=== PATIENT | male | born 1960 | race Caucasian/White ===

== ENCOUNTER 2021-10-14 03:40 | Emergency (ER) | payer MEDICAID ==
[~2021-10-14] VITALS: Ht 185.4 cm; Wt 95.3 kg
[2021-10-14 04:41] VITALS: BP_SYST 119
--- NOTE | 2021-10-14 04:41 | NUR ---
Patient to [facility] for evaluation and treatment
[2021-10-14] MEDS ORDERED: KETOROLAC TROMETHAMINE 60 MG/2 ML VIAL IM ONE (04:45)
--- NOTE | 2021-10-14 04:49 | NUR ---
Xray of rt knee done at bedside by tech
[2021-10-14] MEDS ORDERED: NAPR-1172 PO (06:07)
[2021-10-14 06:11] VITALS: BP_SYST 120
--- NOTE | 2021-10-14 06:11 | NUR ---
Patient given written and verbal discharge instructions by Dr Thomason and verbalizes understanding. ER MD discussed with patient the results and treatment provided. Patient in stable condition. ID arm band removed. Rx of Naproxen sent to pharmacy of choice. Patient educated on pain management and to follow up with PMD. Pain Scale. Opportunity for questions provided and answered by Dr Thomason
== END 2021-10-14 06:11 | disposition home or self-care (01) ==
LOC: SED 03:40
DX: M17.12 Unilateral primary osteoarthritis, left knee (principal); M25.561 Pain in right knee
CPT/HCPCS: 73560; 96372; 99283; J1885